=== PATIENT | female | born 1930 | race Caucasian/White ===

== ENCOUNTER 2017-04-10 08:37 | Outpatient (CLI) | payer MEDICARE, BC ==
--- NOTE | 2017-04-10 11:57 | CT Report ---
EXAM: CT ABDOMEN AND PELVIS (CT KUB) EXAM DATE: 04/10/2017 09:41 AM. CLINICAL HISTORY: ABD PAIN, L SIDE. COMPARISONS: None. TECHNIQUE: Routine axial helical CT imaging was performed through the abdomen and pelvis without IV c ontrast. Reconstructions: Coronal and sagittal. In accordance with CT protocol optimization, one or more of the following dose reduction techniques w ere utilized for this exam: automated exposure control, adjustment of mA and/or KV based on patient s ize, or use of iterative reconstructive technique. FINDINGS: Lung Bases: Unremarkable. Right Kidney/Ureter: Nonobstructing 2 mm stone in the inferior pole the right kidney. No hydronephros is or hydroureter. Left Kidney/Ureter: No stones, hydronephrosis, or hydroureter. No perinephric fat stranding. There is a 2.6 cm simple appearing cyst in the inferior pole of left kidney. Other Solid Organs: Noncontrast images of the solid organs are grossly unremarkable. Gallbladder/Bile Ducts: Unremarkable. Peritoneal Cavity: Mild diverticulitis of the distal ascending colon with no evidence of rupture. No free air or fluid in the abdomen or pelvis. No bowel obstruction. Pelvic Organs: No bladder stones or wall thickening. Noncontrast images of the visualized pelvic orga ns are unremarkable. Vasculature: Unremarkable. Other: None. IMPRESSION: 1. Early diverticulitis of the distal aspect of the descending colon with no evidence of rupture. No free air-fluid in the abdomen or pelvis. No abscess. 2. There is a 2 mm nonobstructing stone in the inferior pole the right kidney. Otherwise, no hydronep hrosis or obstructing renal stones. [facility] Referring Provider Line: [phone] SITE ID: [id number]
== END 2017-04-10 08:38 | disposition home or self-care (01) ==
LOC: DI 08:37
PROVIDERS: ATTEND Nurse Practitioner Family
DX: K57.32 Diverticulitis of large intestine without perforation or abscess without bleeding (principal); N20.0 Calculus of kidney
CPT/HCPCS: 74176

== ENCOUNTER 2017-11-02 21:00 | Outpatient (CLI) | payer MEDICARE, BC | END 2017-11-02 21:01 | disposition short-term general hospital (02) | LOC: EMS 21:00 | PROVIDERS: ATTEND Surgery | DX: R00.2 Palpitations (principal); R42 Dizziness and giddiness; R53.83 Other fatigue | CPT/HCPCS: A0425; A0427 ==

== ENCOUNTER 2018-08-01 19:17 | Outpatient (CLI) | payer MEDICARE, BC | END 2018-08-01 19:18 | disposition short-term general hospital (02) | LOC: EMS 19:17 | PROVIDERS: ATTEND Surgery | DX: R42 Dizziness and giddiness (principal); R11.0 Nausea | CPT/HCPCS: A0425; A0427 ==

== ENCOUNTER 2018-12-18 03:33 | Outpatient (CLI) | payer MEDICARE, BC | END 2018-12-18 03:34 | disposition critical access hospital (66) | LOC: EMS 03:33 | PROVIDERS: ATTEND Surgery | DX: M25.552 Pain in left hip (principal); W01.0XXA Fall on same level from slipping, tripping and stumbling without subsequent striking against object, initial encounter; Y93.01 Activity, walking, marching and hiking; Y92.091 Bathroom in other non-institutional residence as the place of occurrence of the external cause | CPT/HCPCS: A0425; A0429 ==

== ENCOUNTER 2018-12-18 03:56 | Inpatient (IN) | payer MEDICARE, BC ==
--- NOTE | 2018-12-18 04:11 | ED Physician Documentation ---
PD HPI Fall - Stated complaint Stated Complaint: GLF, L HIP PAIN - Chief complaint Chief Complaint: Ext Problem - Additional information Additional information: 88-year-old female who was brought to the emergency department for evaluation of left hip pain after a fall which occurred today. No reports of head, neck or torso or upper extremity trauma. The patient has an obvious deformity to the left leg. Symptoms are described as severe. No other associated symptoms. No relieving factors. Review of Systems Constitutional: denies: Fever Eyes: denies: Discharge Ears: denies: Ear pain Nose: denies: Rhinorrhea / runny nose, Congestion Throat: denies: Sore throat Cardiac: denies: Chest pain / pressure Respiratory: denies: Dyspnea GI: denies: Abdominal Pain : denies: Dysuria Skin: denies: Rash Musculoskeletal: reports: Extremity pain, Joint swelling. 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 - Allergies Allergies/Adverse Reactions: Allergies Allergy/AdvReac Type Severity Reaction Status Date / Time erythromycin base Allergy Unknown Verified 12/18/18 04:55 - Social History Does the pt smoke?: No Smoking Status: Never smoker Does the pt drink ETOH?: No Does the pt have substance abuse?: No - Immunizations Immunizations are current?: No Immunizations: TDAP >10years/unknown - POLST Patient has POLST: No PD ED PE NORMAL - General General: Alert and oriented X 3 - HEENT HEENT: Atraumatic, Moist mucous membranes - Neck Neck: No bony TTP - Cardiac Cardiac: No: RRR (Irregular rhythm) - Respiratory Respiratory: No respiratory distress, Clear bilaterally - Abdomen Abdomen: Soft, Non tender - Derm Derm: Normal color - Extremities Extremities: No: No deformity, No tenderness to palpate, Normal ROM s pain (Obvious deformity to the left hip with tenderness and decreased range of motion. No tenderness of the knee, ankle or foot) - Neuro Neuro: Alert and oriented X 3, Normal speech - Psych Psych: Normal affect PD ED PE EXPANDED - General General: In Pain, In distress Results - Vitals Vitals: Vital Signs - 24 hr 12/18/18 03:59 Temperature 35.8 C L Heart Rate 85 Respiratory 16 Rate Blood Pressure 199/125 H O2 Saturation 97 Oxygen O2 Source Room air - EKG (time done) 0447 Rate: Rate (enter#) Rhythm: Atrial fibrillation Intervals: QRS normal Ischemia: Non specific changes - Labs Labs: Laboratory Tests 12/18/18 12/18/18 12/18/18 04:34 04:34 04:34 WBC 7.6 RBC 4.89 Hgb 14.7 Hct 43.5 MCV 88.9 MCH 30.0 MCHC 33.8 RDW 13.7 Plt Count 182 MPV 8.8 Neut # (Auto) 4.9 Lymph # (Auto) 2.0 [place] # (Auto) 0.5 Eos # (Auto) 0.1 Baso # (Auto) 0.1 Absolute Nucleated RBC 0.01 Nucleated RBC % 0.1 PT 12.6 INR 1.1 Sodium 133 L Potassium 3.5 Chloride 97 L Carbon Dioxide 28 Anion Gap 8.0 BUN 18 Creatinine 0.7 Estimated GFR (MDRD) 79 L Glucose 118 H Calcium 9.1 Total Bilirubin 0.8 AST 19 ALT 15 Alkaline Phosphatase 72 Total Creatine Kinase 31 Troponin I Total Protein 6.9 Albumin 3.8 Globulin 3.1 Albumin/Globulin Ratio 1.2 Lipase 32 12/18/18 04:34 WBC RBC Hgb Hct MCV MCH MCHC RDW Plt Count MPV Neut # (Auto) Lymph # (Auto) [place] # (Auto) Eos # (Auto) Baso # (Auto) Absolute Nucleated RBC Nucleated RBC % PT INR Sodium Potassium Chloride Carbon Dioxide Anion Gap BUN Creatinine Estimated GFR (MDRD) Glucose Calcium Total Bilirubin AST ALT Alkaline Phosphatase Total Creatine Kinase Troponin I < 0.04 Total Protein Albumin Globulin Albumin/Globulin Ratio Lipase - Rads (name of study) XR hip Radiology: Final report received, See rad report PD MEDICAL DECISION MAKING - ED course ED course: The case discussed with the orthopedic surgeon Dr. Gautam who will evaluate the patient for definitive surgical management The case was discussed with the hospitalist who accepts the patient onto his service The findings and plan were discussed with the patient who understands and agrees Departure - Departure Disposition: [facility] DC/Xfer Clinical Impression: Hip fracture, left Qualifiers: Encounter type: initial encounter Fracture type: closed Qualified Code(s): S72. 002A - Fracture of unspecified part of neck of left femur, initial encounter for closed fracture Fall Qualifiers: Encounter type: initial encounter Qualified Code(s): W19.XXXA - Unspecified fall, initial encounter Condition: Stable
[2018-12-18] MEDS ORDERED: MORPHINE 2 MG/ML CARPUJECT IVP STA (04:36)
[2018-12-18 04:43] LABS: BASOPHILS # (AUTO) 0.1 10^3/uL (0.0-0.1); BASOPHILS % (AUTO) 0.9 %; EOSINOPHILS # (AUTO) 0.1 10^3/uL (0.0-0.7); HGB - HEMOGLOBIN 14.7 g/dL (12.0-16.0); LYMPHOCYTES % (AUTO) 26.3 %; MEAN CORPUSCULAR HGB CONC 33.8 g/dL (32.0-36.0); MEAN CORPUSCULAR VOLUME 88.9 fL (81.0-99.0); MEAN PLATELET VOLUME 8.8 fL (7.9-10.8); MONOCYTES # (AUTO) 0.5 10^3/uL (0.0-1.0); NEUTROPHILS # (AUTO) 4.9 10^3/uL (1.5-6.6); NEUTROPHILS % (AUTO) 64.8 %; PLT - PLATELET COUNT 182 10^3/uL (130-450); RED BLOOD COUNT 4.89 10^6/uL (4.20-5.40); RED CELL DISTRIBUTION WIDTH 13.7 % (12.0-15.0); WHITE BLOOD COUNT 7.6 x10^3/uL (4.8-10.8)
--- NOTE | 2018-12-18 04:43 | XRAY Report ---
Reason: chest pain Procedure Date: 12/18/2018 Accession Number: [id number] / [id number] Procedure: XR - Chest 1 View X-Ray CPT Code: 49299 FULL RESULT: EXAM: CHEST RADIOGRAPHY EXAM DATE: 12/18/2018 04:19 AM. CLINICAL HISTORY: Chest pain. COMPARISON: XR CHEST PA AND LAT 11/24/2011 2:02 PM. TECHNIQUE: 1 view. FINDINGS: Lungs/Pleura: No focal opacities evident. No pleural effusion. No pneumothorax. There is a calcified granuloma in the right midlung. Mediastinum: The heart is enlarged and stable compared to the prior study. The central pulmonary arteries are prominent and quickly taper. Findings may be related to pulmonary arterial hypertension. Other: None. IMPRESSION: 1. Stable appearance of the chest. No acute infiltrates. 2. Enlarged heart. [facility]
--- NOTE | 2018-12-18 04:45 | XRAY Report ---
Reason: pain, Procedure Date: 12/18/2018 Accession Number: [id number] / [id number] Procedure: XR - Hip w/Pelvis 2-3V LT CPT Code: FULL RESULT: EXAM: FLUOROSCOPIC GUIDANCE EXAM DATE: 12/18/2018 04:19 AM. CLINICAL HISTORY: Pain. COMPARISON: XR HIP UNILAT MIN 2 VIEW 11/03/2010 10:54 AM. FINDINGS: There is an angulated intertrochanteric fracture of the left hip. There are degenerative changes of both hips with joint space narrowing and marginal osteophytes. IMPRESSION: 1. Angulated intertrochanteric fracture of the left hip. 2. Degenerative changes of both hips. [facility]
[2018-12-18 04:49] LABS: INR 1.1 (0.8-1.2); PT - PROTHROMBIN TIME 12.6 secs (9.9-12.6)
[2018-12-18 04:55] LABS: ALBUMIN 3.8 g/dL (3.2-5.5); ALBUMIN/GLOBULIN RATIO 1.2 (1.0-2.2); BILIRUBIN,TOTAL 0.8 mg/dL (0.2-1.0); CALCIUM 9.1 mg/dL (8.5-10.3); CREATININE 0.7 mg/dL (0.4-1.0); TOTAL PROTEIN 6.9 g/dL (6.7-8.2)
[2018-12-18] MEDS ORDERED: HYDROcod/ACETAM 5/325 MG TABLET PO PRN (05:59)
[2018-12-18] MEDS ORDERED: ACETAMINOPHEN 325 MG TABLET PO PRN (05:59)
[2018-12-18] MEDS ORDERED: SODIUM CHLORIDE FLUSH 0.9% 10 ML SYRINGE IVP PRN ×2 (05:59→16:15)
[2018-12-18] MEDS ORDERED: SODIUM CHLORIDE 0.9% 1,000 ML IV SCH (06:00)
--- NOTE | 2018-12-18 06:23 | HISTORY & PHYSICAL EXAMINATION ---
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 She sustained a mechanical fall while going to the bathroom. She reports that the floor was wet and she slipped. She usually gets around using a walker. She denies chest pain, BENJI, abd pain, fever or chills. She rates her left hip pain currently as 4/10. However it gets significantly worse when she tries to move. She also has very dry oral mucosa. Work up in the ED revealed she has a left hip fracture. She is being admitted for further treatment. 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 brother: from an unspecified cardiac problem Living arrangement: [facility] - Substance History Use: Uses substance without health or social issues: NONE - POLST Patient has POLST: No POLST Status: DNR Meds/Allgy - Allergies Allergies/Adverse Reactions: Allergies Allergy/AdvReac Type Severity Reaction Status Date / Time erythromycin base Allergy Unknown Verified 12/18/18 04:55 Review of Systems - Constitutional Constitutional: denies: Fatigue, Fever, Chills, Malaise, Diaphoresis, Night sweats - Eyes Eyes: reports: Vision loss (left worse than right). denies: Pain - Ears, Nose & Throat Ears, Nose & Throat: denies: Ear pain, Hearing loss, Vertigo - Cardiovascular Cariovascular: reports: Irregular heart rate. denies: Palpitations, Chest pain, Edema, Lightheadedness, Syncope, Exertional dyspnea, Decr. exercise tolerance, Orthopnea - Respiratory Respiratory: denies: Cough, Sputum production, Wheezing, SOB at rest, SOB with exertion - Gastrointestinal Gastrointestinal: denies: Abdominal pain, Diarrhea, Nausea, Vomiting - Genitourinary Genitourinary: denies: Dysuria, Frequency, Urgency, Hematuria - Musculoskeletal Musculoskeletal: reports: Joint pain (left hip) - Integumentary Integumentary: denies: Rash, Pruritis, Dryness - Neurological Neurological: reports: Focal weakness (left-sided residual weakness) - Psychiatric Psychiatric: denies: Depression, Anxiety, Suicidal - Endocrine Endocrine: denies: Polyuria, Polydypsia - Hematologic/Lymphatic Hematologic/Lymphatic: denies: Anemia, Bruising, Petechiae Prior Level of Functionality: Patient has very poor vision in both eyes. Left worse than right She lives at [place]. She ambulates using a walker Exam - Vital Signs Vital Signs: Vital Signs x48h Temp Pulse Resp BP Pulse Ox 12/18/18 03:59 35.8 C L 85 16 199/125 H 97 - Physical Exam General Appearance: positive: Alert, Moderate distress. negative: Lethargic Eyes Bilateral: positive: Normal inspection. negative: Conjunctivae nml, No scleral icterus ENT: positive: ENT inspection nml, Dry mucous membranes. negative: Pharynx nml Neck: positive: Nml inspection, No JVD, Trachea midline Respiratory: positive: Chest non-tender, No respiratory distress, Breath sounds nml. negative: Wheezes, Rales, Rhonchi Cardiovascular: positive: Irregularly irregular Abdomen: positive: Non-tender, Nml bowel sounds, No distention. negative: Guarding, Rebound Back: positive: Nml inspection Extremities: positive: Pedal edema (left more than right). negative: Full ROM Neurologic/Psychiatric: positive: Oriented x3 Conclusion/Plan - Problem List (1) Hip fracture, left Conclusion/Plan: Patient NPO. IV hydration Pain management with norco and tylenol Dr Gautam (orthopedic) was contacted by the ED and will see the patient EKG pending Revised cardiac risk index Risk factor: Multiple CVA's Patient has a revised cardiac risk index of 1.0-1.5 % This is the risk of a cardiac event during this non-cardiac surgery However patient has a history of a reaction to an unspecified anesthetic She experienced sudden drop in her blood pressure in the OR upon administration. Thus she would need clearance from an anesthesiology point of view Qualifiers: Encounter type: initial encounter Fracture type: closed Qualified Code(s): S72.002A - Fracture of unspecified part of neck of left femur, initial encounter for closed fracture (2) Hypertension Conclusion/Plan: On metoprolol. Will continue (3) Atrial fibrillation Conclusion/Plan: Rate controlled. On metoprolol. Will continue On baby aspirin only. Will continue Qualifiers: Atrial fibrillation type: chronic Qualified Code(s): I48.2 - Chronic atrial fibrillation (4) Dehydration, mild Conclusion/Plan: Gentle hydration with normal saline at 100ml/hr - Lab Results Fish Bones: 12/18/18 04:34 12/18/18 04:34 Core Measures - Anticipated LOS I expect patient to be DC'd or transferred within 96 hours.: Yes - DVT/VTE - Prophylaxis VTE/DVT Device ordered at admit?: Yes VTE/DVT Prophylaxis med ordered at admit?: No Not Ordered - Medical Reason: Contraindicated (surgery to be done shortly) - AMI - Statin at Admit Aspirin Prescribed on Admit: Yes
[2018-12-18] MEDS: POLYETHYLENE GLYCOL 3350 17 GM PACKET PO SCH (08:58)
[2018-12-18] MEDS ORDERED: SODIUM CHLORIDE FLUSH 0.9% 10 ML SYRINGE IVP SCH (09:00)
[2018-12-18] MEDS: METOPROLOL SUCCINATE 50 MG TABLET PO SCH ×2 (10:14→18:39)
--- NOTE | 2018-12-18 12:18 | PROVIDER PROGRESS NOTE ---
Subjective - Prog Note Date Prog Note Date: 12/18/18 Prog Note Time: 12:15 - Subjective Pt reports feeling: No change (Patient DIVINA aGLF at [facility] on her way to the bathroom last PM, injuring her left hip. Noted immediate pain; unable to stand. Taken to ED where XR showed her left hip fracture. No LOC or other new injuries. Hx of CVA in the past- last one in Oct 2018. 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) Objective - Vital Signs/Intake & Output Vital Signs: Vital Signs x48h Temp Pulse Resp BP Pulse Ox 12/18/18 10:54 36.2 C L 85 18 137/89 H 94 12/18/18 06:58 36.3 C L 90 18 146/94 H 93 - Lab Results Fish Bones: 12/18/18 04:34 12/18/18 04:34 Other Labs: Lab Results x24hrs 12/18/18 12/18/18 12/18/18 Range/Units 04:34 04:34 04:34 WBC (4.8-10.8) x10^3/uL RBC (4.20-5.40) 10^6/uL Hgb (12.0-16.0) g/dL Hct (37.0-47.0) % MCV (81.0-99.0) fL MCH (27.0-31.0) pg MCHC (32.0-36.0) g/dL RDW (12.0-15.0) % Plt Count (130-450) 10^3/uL MPV (7.9-10.8) fL Neut # (Auto) (1.5-6.6) 10^3/uL Lymph # (Auto) (1.5-3.5) 10^3/uL [place] # (Auto) (0.0-1.0) 10^3/uL Eos # (Auto) (0.0-0.7) 10^3/uL Baso # (Auto) (0.0-0.1) 10^3/uL Absolute Nucleated RBC x10^3/uL Nucleated RBC % /100WBC PT 12.6 (9.9-12.6) secs INR 1.1 (0.8-1.2) Sodium 133 L (135-145) mmol/L Potassium 3.5 (3.5-5.0) mmol/L Chloride 97 L (101-111) mmol/L Carbon Dioxide 28 (21-32) mmol/L Anion Gap 8.0 (6-13) BUN 18 (6-20) mg/dL Creatinine 0.7 (0.4-1.0) mg/dL Estimated GFR (MDRD) 79 L (>89) Glucose 118 H (70-100) mg/dL Calcium 9.1 (8.5-10.3) mg/dL Total Bilirubin 0.8 (0.2-1.0) mg/dL AST 19 (10-42) IU/L ALT 15 (10-60) IU/L Alkaline Phosphatase 72 (42-121) IU/L Total Creatine Kinase 31 (22-269) IU/L Troponin I < 0.04 (<0.49) ng/mL Total Protein 6.9 (6.7-8.2) g/dL Albumin 3.8 (3.2-5.5) g/dL Globulin 3.1 (2.1-4.2) g/dL Albumin/Globulin Ratio 1.2 (1.0-2.2) Lipase 32 (22-51) U/L 12/18/18 Range/Units 04:34 WBC 7.6 (4.8-10.8) x10^3/uL RBC 4.89 (4.20-5.40) 10^6/uL Hgb 14.7 (12.0-16.0) g/dL Hct 43.5 (37.0-47.0) % MCV 88.9 (81.0-99.0) fL MCH 30.0 (27.0-31.0) pg MCHC 33.8 (32.0-36.0) g/dL RDW 13.7 (12.0-15.0) % Plt Count 182 (130-450) 10^3/uL MPV 8.8 (7.9-10.8) fL Neut # (Auto) 4.9 (1.5-6.6) 10^3/uL Lymph # (Auto) 2.0 (1.5-3.5) 10^3/uL [place] # (Auto) 0.5 (0.0-1.0) 10^3/uL Eos # (Auto) 0.1 (0.0-0.7) 10^3/uL Baso # (Auto) 0.1 (0.0-0.1) 10^3/uL Absolute Nucleated RBC 0.01 x10^3/uL Nucleated RBC % 0.1 /100WBC PT (9.9-12.6) secs INR (0.8-1.2) Sodium (135-145) mmol/L Potassium (3.5-5.0) mmol/L Chloride (101-111) mmol/L Carbon Dioxide (21-32) mmol/L Anion Gap (6-13) BUN (6-20) mg/dL Creatinine (0.4-1.0) mg/dL Estimated GFR (MDRD) (>89) Glucose (70-100) mg/dL Calcium (8.5-10.3) mg/dL Total Bilirubin (0.2-1.0) mg/dL AST (10-42) IU/L ALT (10-60) IU/L Alkaline Phosphatase (42-121) IU/L Total Creatine Kinase (22-269) IU/L Troponin I (<0.49) ng/mL Total Protein (6.7-8.2) g/dL Albumin (3.2-5.5) g/dL Globulin (2.1-4.2) g/dL Albumin/Globulin Ratio (1.0-2.2) Lipase (22-51) U/L - Diagnostic Imaging Diagnostic Imaging Comments: XR showed left IT hip fracture with some displacement. 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 Left sided weakness due to CVA 4. Atrial fibrillation PLAN: To OR for long interTan nailing of left hip fracture. Options given. Possible complications discussed, including anesthesia risk, infection, malunion, nerve damage, repeat CVA, DVT, etc. Questions answered. Leg marked. Consent signed. Qualifiers: Encounter type: initial encounter Fracture type: closed Qualified Code(s): S72.002A - Fracture of unspecified part of neck of left femur, initial encounter for closed fracture
--- NOTE | 2018-12-18 13:09 | ANESTHESIA ---
Pre-Anesthesia VS, & Labs - Diagnosis left hip fracture - Procedure left hip intertan nailing Vital Signs: Temp Pulse Resp BP Pulse Ox 36.2 C L 85 18 137/89 H 94 12/18/18 10:54 12/18/18 10:54 12/18/18 10:54 12/18/18 10:54 12/18/18 10:54 Height 5 ft 3 in Weight (kg) 57.5 kg Body Mass Index 22.4 - NPO >8 hours - Is Patient ?: Not Applicable - Lab Results Current Lab Results: Laboratory Tests 12/18/18 04:34: Troponin I < 0.04 12/18/18 04:34: Sodium 133 L, Potassium 3.5, Chloride 97 L, Carbon Dioxide 28, Anion Gap 8.0, BUN 18, Creatinine 0.7, Estimated GFR (MDRD) 79 L, Glucose 118 H, Calcium 9.1, Total Bilirubin 0.8, AST 19, ALT 15, Alkaline Phosphatase 72, Total Creatine Kinase 31, Total Protein 6.9, Albumin 3.8, Globulin 3.1, Albumin/Globulin Ratio 1.2, Lipase 32 12/18/18 04:34: PT 12.6, INR 1.1 12/18/18 04:34: WBC 7.6, RBC 4.89, Hgb 14.7, Hct 43.5, MCV 88.9, MCH 30.0, MCHC 33.8, RDW 13.7, Plt Count 182, MPV 8.8, Neut # (Auto) 4.9, Lymph # (Auto) 2.0, [place] # (Auto) 0.5, Eos # (Auto) 0.1, Baso # (Auto) 0.1, Absolute Nucleated RBC 0.01, Nucleated RBC % 0.1 Fish Bones: 12/18/18 04:34 12/18/18 04:34 Home Medications and Allergies Home Medications: Ambulatory Orders Aspirin [Aspirin EC] 81 mg PO DAILY 12/18/18 Metoprolol Tartrate [Lopressor] 75 mg PO BID 12/18/18 Active Medications Acetaminophen (Tylenol) 650 mg PO Q4HR PRN PRN Reason: Pain 1 to 4 Hydrocodone Bitart/Acetaminophen ([place] 5/325) 1 tab PO Q4HR PRN PRN Reason: Pain 5 to 7 Last Admin: 12/18/18 09:12 Dose: 1 tab Sodium Chloride (Normal Saline 0.9%) 1,000 mls @ 100 mls/hr IV .Q10H [facility] Last Admin: 12/18/18 08:57 Dose: 100 mls/hr Cefazolin Sodium/Dextrose (Ancef 2 Gm/50 Ml) 2 gm in 50 mls @ 100 mls/hr IV ONCE [facility] Stop: 12/18/18 16:00 Metoprolol Succinate (Toprol Xl) 50 mg PO BIDWM [facility] Last Admin: 12/18/18 10:14 Dose: 50 mg Polyethylene Glycol (Miralax) 17 gm PO DAILY [facility] Last Admin: 12/18/18 08:58 Dose: Not Given Sodium Chloride (Normal Saline Flush 0.9%) 10 ml IVP PRN PRN PRN Reason: NEEDED PER PROVIDER ORDERS Sodium Chloride (Normal Saline Flush 0.9%) 10 ml IVP 0100,0900,1700 [facility] Last Admin: 12/18/18 08:58 Dose: 10 ml Aspirin [Aspirin EC] 81 mg PO DAILY 12/18/18 Metoprolol Tartrate [Lopressor] 75 mg PO BID 12/18/18 Allergies/Adverse Reactions: Allergies Allergy/AdvReac Type Severity Reaction Status Date / Time erythromycin base Allergy Unknown Verified 12/18/18 04:55 Anes History & Medical History - Anesthetic History Anesthesia Complications: reports: No previous complications - Medical History Cardiovascular: reports: Hypertension, Atrial fibrillation Pulmonary: reports: None Gastrointestinal: reports: None Urinary: reports: Incontinence Neuro: reports: TIA Musculoskeletal: reports: Osteoarthritis Skin: reports: Rosacea Smoking Status: Never smoker - Surgical History General: Hiatal hernia repair Gynecologic: Hysterectomy Exam General: Alert Dental: WNL Mouth Opening: Greater than 4 Fingerbreadths Mallampati classification: III Thyromental Distance: greater than 6 cm Respiratory: Lungs clear Cardiovascular: Regular rate Neurological: Other (patient is blind, left weakness From CVA) Mental/Cognitive Status: Alert/Oriented X3 Plan Anesthesia Type: Spinal Consent for Procedure(s) Verified and Reviewed: Yes Code Status: Do Not Attempt Resuscitation ASA classification: 3-Severe systemic disease Is this case an emergency?: Yes
[2018-12-18] MEDS ORDERED: BUPIVACAINE 0.25%-EPI 1:200000 PF 30 ML VIAL ONE (13:33)
--- NOTE | 2018-12-18 13:51 | CONSULTATION NOTE ---
DATE OF SERVICE: 12/18/2018 Physician: Josue Gautam MD REFERRING PHYSICIAN: Darion Walter MD of the emergency room department. CHIEF COMPLAINT: "My left hip hurts." HISTORY OF PRESENT ILLNESS: Patient is an 88-year-old female resident at [place], who apparently fell while going to the bathroom last evening, landing on her left side. She noted immediate pain in her left hip and was unable to stand or weight bear. She had a recent stroke, which has resulted in a residual left-sided weakness as well as blindness. She has been able to walk with a walker at her [place] [facility]. The patient denies any other injuries. There was no loss of conscious noted. PHYSICAL EXAMINATION: The patient's left hip is shortened and externally rotated. It is tender on palpation. Painful hip range of motion noted as well. The patient is able to wiggle her toes on command. Sensation appeared to be intact as well. Good capillary filling of the digits noted. IMAGES: X-rays that were taken shows an angulated, minimally comminuted intratrochanteric left hip fracture. She has marked osteoporosis of her left femur, likely due to disuse from her recent stroke. ASSESSMENT 1. Closed displaced and angulated left intertrochanteric hip fracture. 2. 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 She has, however, been an ambulator in the [place] [facility] with a walker. 3. Status post cerebrovascular accident, which has resulted in blindness and left-sided weakness. 4. History of atrial fibrillation - currently on baby aspirin only for any anticoagulation. 5. History of hypertension. 6. History of total knee arthroplasty. PLAN: Discussed with patient her treatment options. Also discussed possible complications if we proceeded with surgery including anesthesia risks, infection, blood loss, nerve damage, malunion, nonunion, new stroke, or deep venous thromboses. She appears to understand the risks. Her questions were answered. She wishes to proceed with surgery. Consent signed. Leg marked. TD: 12/18/2018 12:37 RONY
[2018-12-18] MEDS ORDERED: fentaNYL 100 MCG/2 ML VIAL IVP ONE (14:00)
[2018-12-18] MEDS ORDERED: ROCURONIUM 50 MG/5 ML VIAL IVP ONE (14:00)
[2018-12-18] MEDS ORDERED: ePHEDrine 50 MG/ML VIAL IVP ONE (14:00)
[2018-12-18] MEDS ORDERED: ONDANSETRON 4 MG/2 ML VIAL IVP ONE (14:00)
[2018-12-18] MEDS ORDERED: LIDOCAINE-MPF 2% 5 ML VIAL IM ONE (14:00)
[2018-12-18] MEDS ORDERED: KETAMINE 500 MG/10 ML VIAL IVP ONE (14:00)
[2018-12-18] MEDS ORDERED: PHENYLEPHRINE 50 MG/5 ML VIAL IV ONE (14:00)
[2018-12-18] MEDS ORDERED: ceFAZolin 2 GM/50 ML 2 GM/50 ML BAG IV SCH (14:00)
[2018-12-18] MEDS ORDERED: PROPOFOL 200 MG/20 ML VIAL IVP ONE (14:00)
[2018-12-18] MEDS ORDERED: MIDAZOLAM 2 MG/2 ML VIAL IVP ONE (14:00)
[2018-12-18] MEDS ORDERED: DEXAMETHASONE 4 MG/ML VIAL IVP ONE (14:00)
[2018-12-18] MEDS ORDERED: ceFAZolin 2 GM/50 ML 2 GM/50 ML BAG IV ONE (14:00)
[2018-12-18] MEDS ORDERED: BUPIVACAINE 0.25% PF 30 ML VIAL SUBQ ONE ×2 (14:59→15:52)
[2018-12-18] MEDS ORDERED: LACTATED RINGERS 1,000 ML IV ONE ×2 (15:00→15:05)
[2018-12-18] MEDS ORDERED: ONDANSETRON 4 MG/2 ML VIAL IVP PRN (16:15)
[2018-12-18] MEDS ORDERED: PROCHLORPERAZINE 10 MG/2 ML VIAL IVP PRN (16:15)
[2018-12-18] MEDS ORDERED: SENNA 8.6 MG TABLET PO PRN (16:15)
[2018-12-18] MEDS ORDERED: oxyCODONE 5 MG TABLET PO PRN (16:15)
[2018-12-18] MEDS ORDERED: DOCUSATE SODIUM 100 MG CAPSULE PO PRN (16:15)
[2018-12-18] MEDS ORDERED: MORPHINE 2 MG/ML CARPUJECT IVP PRN (16:15)
--- NOTE | 2018-12-18 16:15 | OPERATIVE REPORT ---
Operative Report - General Admit Date: 12/18/18 Procedure Date: 12/18/18 Planned Procedure: Long interTan nailing of left hip fracture Pre-Op Diagnosis: Left intertrochancteric hip fracture; osteoporosis Procedure Performed: Closed reduction and long interTan nailing of left hip fracture Post Op Diagnosis: Same - Procedure Note Primary Surgeon: Dennys Gautam MD Anesthesia Provider: Gabe Vega CRNA Anesthesia Technique: General ET tube IV Fluids (mL): 900 Estimated Blood Loss (mL): 150 Complications: None
[2018-12-18 17:47] LABS: BILIRUBIN,URINE NEGATIVE (NEGATIVE); GLUCOSE, URINE (UA) NEGATIVE (NEGATIVE); KETONES,URINE (UA) NEGATIVE (NEGATIVE); LEUKOCYTE ESTERASE, URINE SMALL (NEGATIVE); NITRITE,URINE POSITIVE (NEGATIVE); OCCULT BLOOD,URINE MODERATE (NEGATIVE); PROTEIN,URINE NEGATIVE (NEGATIVE); UROBILINOGEN,URINE 0.2 (NORMAL) E.U./dL (NORMAL)
[2018-12-18 17:54] LABS: CLARITY,URINE HAZY (CLEAR)
[2018-12-18 18:03] LABS: BACTERIA,URINE Many /HPF (None Seen); RBC,URINE TNTC /HPF (0-5); SQUAMOUS EPITHELIAL CELL,UR NONE SEEN (<= Few)
[2018-12-18] MEDS: SODIUM CHLORIDE 0.9% 1,000 ML IV SCH (18:21)
[2018-12-18] MEDS: SODIUM CHLORIDE FLUSH 0.9% 10 ML SYRINGE IVP SCH (18:21)
--- NOTE | 2018-12-18 18:38 | OPERATIVE REPORT ---
DATE OF SERVICE: 12/18/2018 Physician: Josue Gautam MD PREOPERATIVE DIAGNOSIS: Angulated left intertrochanteric hip fracture. POSTOPERATIVE DIAGNOSIS: Angulated left intertrochanteric hip fracture. PROCEDURE PERFORMED: Closed reduction and long Intertan nailing of left hip fracture. SURGEON: Josue Gautam MD NURSERYMAN ASSISTANT: ANESTHESIA TYPE/PROVIDER: General. DESCRIPTION OF PROCEDURE: The patient was taken to the operating room on the afternoon of 12/18/2018 , where she was placed under general anesthetic in a supine position, after the attempt for spinal an esthetic was unsuccessful. She was then positioned supine onto the fracture table. The right unfrac tured leg was then flexed and widely abducted and held in the well leg baldwin. We then placed the fr actured left lower extremity in axial traction with the leg internally rotated about 30 degrees. Int raoperative x-rays of the hip in AP and lateral projection showed good reduction of our fracture in b oth projections. We then prepped and draped the lateral aspect of the hip down to the lateral knee i n the usual fashion for our procedure. Making oblique skin incision just proximal to the tip of the greater trochanter, we incised the skin and fascia neptali. We then bluntly dissected down to the tip of the greater trochanter. This was wher e we placed the threaded-tip guidewire from our set. Fluoroscopic views confirmed the location of ou r guide pin at the tip of the greater trochanter. We then advanced this pin under power down to the proximal femur, down to the level of the lesser trochanter. Fluoroscopic view in AP and lateral proj ection, showed a good position of our guide pin and proper depth. We then reamed over this guide pin a 17 mm channel reamer down to the tip of the greater trochanter. We then removed the guide pin and the reamer. We next followed with the ball-tip down into the reamed proximal femur and advanced thi s down the femoral canal, down to the level of the distal femoral epiphyseal scar. The position of o ur guide pin intraosseously was confirmed in AP and lateral projections of fluoroscopic views of the femur. Direct measuring guide was then used, and we would determine a 38 cm length nail would be uti lized. We then sequentially reamed the femoral shaft with the flexible reamer, starting with a 9 mm end cutting reamer. We then advanced in 1 mm increments up to 13 mm. We then advanced 0.5 mm increm ents until we finished with the 14.5 mm reamer. At this point, we removed the reamers and proceeded to insert the selected long Intertan nail: A 13 mm diameter x 38 cm length x 125 degree angle. This left Intertan nail, the proximal hole of the nail was found to be in alignment with the axis of the f emoral neck. This was felt satisfactory. We then made a skin incision over the lateral proximal thi gh, where we inserted the oval drill sleeve, which was inserted in the distal end of our insertion ou trigger. This was advanced to the lateral femoral cortex. The drill sleeve was then inserted into t his drill guide. We then advanced the threaded-tip guidewire under power through the proximal femur, the femoral neck and into the femoral head. Minimal adjustments were made until the guide pin was i n the central axis of the femoral neck and head in both AP and lateral projections. This was advance d within a couple millimeters of the subchondral bone of the femoral head. Satisfied with its locati on, a direct measuring guide was used and we decided an 11 x 100 mm subtrochanteric hip lag screw be utilized. Removing our pin guide, we then proceeded to use the cannulated reamer to prepare the prox imal femur up to within a few millimeters of the subchondral bone of the femoral head. Removing the reamer, we then placed the selected subtrochanteric hip lag screw up into the femoral neck and head u sing the inserted guide pin as our guide. Fluoroscopic views in AP and lateral projection showed goo d placement of our hip lag screw with the threaded portion within a few millimeters of the subchondra l bone in both AP and lateral projections. We then obtained some mild compression with our compressi on knob to impact the fracture. Satisfied with our reduction and our placement of our hardware, we t hen removed the insertion apparatus from the hip lag screw. We then used a hinge screwdriver to tigh ten the set bolt in the proximal end of our nail until it was snug and then backed it off 90 degrees. At this point, we then removed the insertion/outrigger apparatus that was used to insert the nail. We then redirected our attention down distally. We abducted the leg locking into place to allow bet ter positioning of our C-arm fluoroscopy in lateral projection. With minor adjustments of the C-arm and of the leg, we were able to obtain nearly perfect circles in the distal interlocking holes in our distal end of our nail. We then made a small skin incision overlying the oval distal hole in the na il. After clearing away the soft tissues, then placed the 4.0 mm drill overlying the oval hole in th e nail and proceeded to drill both the lateral and medial femoral cortex. Fluoroscopic views in AP a nd lateral projection showed that the drill was within the distal hole of our nail and was bicortical . Direct measuring guide was used and we determined the proper length of our screw. We then removed the drill and followed with the selected distal locking screw. Fluoroscopic views were then obtaine d showing that the distal locking screw was in the oval hole in the distal end of our nail and was bi cortical. Proximal views again showed the fracture to still be reduced adequately, and the hardware to be in satisfactory position. We then irrigated the wounds out thoroughly with saline. We closed the proximal wound with several interrupted stitches of 0 Vicryl to approximate the fascia neptali layer . We then followed with closure of the subcutaneous tissue using buried simple interrupted stitches of 2-0 Vicryl for both the proximal and middle incision. Finally, skin shelby were used to close th e skin wounds on all the incisions. We injected a total of 24 mL of 0.25% Marcaine with epinephrine to provide local anesthesia to the incisions. We then dressed the wounds and transferred the patient off of the fracture table and onto her bed. She was then taken to recovery room in satisfactory con dition. ESTIMATED BLOOD LOSS: About 150 mL REPLACEMENT: 900 mL of crystalloid. INTRAOPERATIVE COMPLICATIONS: None. PLAN: We will begin physical therapy on the first postoperative day. She may go weightbearing as to lerated on this lower extremity with her walker. TD: 12/18/2018 16:46
--- NOTE | 2018-12-18 19:29 | XRAY Report ---
Reason: LEFT HIP PINNING Procedure Date: 12/18/2018 Accession Number: [id number] / [id number] Procedure: [place] - OR C-Arm Procedure CPT Code: FULL RESULT: Findings IMPRESSION: Please refer to accession #[id number] for details.
--- NOTE | 2018-12-18 19:29 | XRAY Report ---
Reason: LEFT HIP PINNING Procedure Date: 12/18/2018 Accession Number: [id number] / [id number] Procedure: XR - Hip w/Pelvis 1V LT CPT Code: FULL RESULT: EXAM: PELVIS RADIOGRAPHY EXAM DATE: 12/18/2018 04:07 PM. CLINICAL HISTORY: LEFT HIP PINNING. COMPARISON: HIP W/PELVIS 2-3V LT 12/18/2018 4:19 AM. TECHNIQUE: Intraoperative fluoroscopic views. FINDINGS: Intraoperative fluoroscopy was provided for left hip open reduction with internal fixation. There is interval placement of a trochanteric fixation nail and intramedullary sawyer in the left femur. Near-anatomic alignment of the intertrochanteric fracture. Please refer to operative report for further details. Total fluoroscopy time: 49 seconds (0.21 mGy). IMPRESSION: Intraoperative fluoroscopy as above. RADIA
[2018-12-18] MEDS: ceFAZolin 2 GM/50 ML 2 GM/50 ML BAG IV SCH (21:50)
[2018-12-19] MEDS: SODIUM CHLORIDE FLUSH 0.9% 10 ML SYRINGE IVP SCH ×3 (01:54→16:51)
[2018-12-19 05:07] LABS: BASOPHILS % (AUTO) 0.2 %; LYMPHOCYTES # (AUTO) 0.8 10^3/uL (1.5-3.5); LYMPHOCYTES % (AUTO) 6.3 %; MEAN CORPUSCULAR HEMOGLOBIN 30.1 pg (27.0-31.0); MEAN CORPUSCULAR HGB CONC 32.8 g/dL (32.0-36.0); MEAN CORPUSCULAR VOLUME 91.9 fL (81.0-99.0); MEAN PLATELET VOLUME 8.8 fL (7.9-10.8); MONOCYTES # (AUTO) 0.9 10^3/uL (0.0-1.0); MONOCYTES % (AUTO) 7.1 %; NEUTROPHILS # (AUTO) 10.4 10^3/uL (1.5-6.6); NEUTROPHILS % (AUTO) 86.4 %; PLT - PLATELET COUNT 138 10^3/uL (130-450); RED BLOOD COUNT 3.98 10^6/uL (4.20-5.40); RED CELL DISTRIBUTION WIDTH 13.9 % (12.0-15.0); WHITE BLOOD COUNT 12.1 x10^3/uL (4.8-10.8)
[2018-12-19] MEDS: ceFAZolin 2 GM/50 ML 2 GM/50 ML BAG IV SCH (05:21)
[2018-12-19] MEDS: SODIUM CHLORIDE 0.9% 1,000 ML IV SCH ×2 (06:01→21:03)
--- NOTE | 2018-12-19 06:38 | PROVIDER PROGRESS NOTE ---
Subjective - Prog Note Date Prog Note Date: 12/19/18 Prog Note Time: 06:35 - Subjective Pt reports feeling: Improved Subjective: Karen has no complaints but admits to being frightened when moving since having surgery. She cannot see well, but wanted it to be darker in her room for a nap today. She denies chest pain, chest pressure, nausea, vomiting, diarrhea, a rash, dizziness, a loss of sensation in her LLE, or a new cough. She was not surprised to hear of her acute UTI, and understands the Hospitalist role. Current Medications - Current Medications Current Medications: Active Medications: Acetaminophen (Tylenol) 650 - 975 mg PO Q4HR PRN Docusate Sodium (Colace 100mg Capsule) 100 mg PO BID PRN Enoxaparin Sodium (Lovenox) 40 mg SUBQ DAILY JEAN-PIERRE Acetaminophen (Ofirmev) 100 mls @ 400 mls/hr IV Q6HR PRN Sodium Chloride (Normal Saline 0.9%) 1,000 mls @ 80 mls/hr IV .[id number] JEAN-PIERRE Metoprolol Succinate (Toprol Xl) 50 mg PO BIDWM JEAN-PIERRE Morphine Sulfate (Morphine (Carpuject)) 2 mg IVP Q2HR PRN Ondansetron HCl (Zofran Inj) 4 mg IVP Q6HR PRN Oxycodone HCl (Roxicodone) 5 mg PO Q4HR PRN Polyethylene Glycol (Miralax) 17 gm PO DAILY JEAN-PIERRE Prochlorperazine Edisylate (Compazine Inj) 10 mg IVP Q6HR PRN Senna (Senokot) 17.2 mg PO Q12H PRN TMP/sulfa BID PO Vitamin D3 daily PO Fosamax 10 mg daily PO x7 days HOME meds: Aspirin [Aspirin EC] 81 mg PO DAILY 12/18/18 Metoprolol Succinate 75 mg PO BID 12/18/18 Objective - Vital Signs/Intake & Output Reviewed Vital Signs: Yes Vital Signs: Vital Signs x48h Temp Pulse Resp BP Pulse Ox 12/19/18 04:07 36.2 C L 89 16 134/88 H 98 12/18/18 23:44 36.4 C L 84 18 110/72 100 Intake & Output: Intake & Output 12/16/18 12/17/18 12/18/18 12/19/18 23:59 23:59 23:59 23:59 Intake Total 755 1333.333 Output Total 230 125 Balance 525 1208.333 - Objective General Appearance: positive: No acute distress, Alert Eyes Bilateral: positive: PERRL Eyes: OU Conjunctivae pale ENT: positive: Pharynx nml, Dry mucous membranes Neck: positive: No JVD, Trachea midline Respiratory: positive: Chest non-tender, No respiratory distress, Other (diminished) Cardiovascular: positive: No gallop, Irregularly irregular, Tachycardia, Systolic murmur, Decreased pulse(s) Peripheral Pulses: 1+ Radial (R), 1+ Radial (L), 1+ Posterior tibialis (R), 1+ Posterior tibialis (L) Abdomen: positive: Non-tender, Nml bowel sounds Back: positive: Nml inspection Skin: positive: Color nml, No rash, Warm, Dry Extremities: positive: Pedal edema, Joint swelling (LLE with more edema, post op sites are CDI with ice packs) Neurologic/Psychiatric: positive: Oriented x3, CN's nml (2-12), Motor nml, Weakness, Facial droop (left), Slurred/abnml speech, Depressed mood/affect - Lab Results Fish Bones: 12/19/18 04:55 12/18/18 04:34 Other Labs: Lab Results x24hrs 12/19/18 12/18/18 12/18/18 Range/Units 04:55 16:25 13:39 WBC 12.1 H (4.8-10.8) x10^3/uL RBC 3.98 L (4.20-5.40) 10^6/uL Hgb 12.0 (12.0-16.0) g/dL Hct 36.6 L (37.0-47.0) % MCV 91.9 (81.0-99.0) fL MCH 30.1 (27.0-31.0) pg MCHC 32.8 (32.0-36.0) g/dL RDW 13.9 (12.0-15.0) % Plt Count 138 (130-450) 10^3/uL MPV 8.8 (7.9-10.8) fL Neut # (Auto) 10.4 H (1.5-6.6) 10^3/uL Lymph # (Auto) 0.8 L (1.5-3.5) 10^3/uL [place] # (Auto) 0.9 (0.0-1.0) 10^3/uL Eos # (Auto) 0.0 (0.0-0.7) 10^3/uL Baso # (Auto) 0.0 (0.0-0.1) 10^3/uL Absolute Nucleated RBC 0.00 x10^3/uL Nucleated RBC % 0.0 /100WBC Urine Color YELLOW Urine Clarity HAZY (CLEAR) Urine pH 6.0 (5.0-7.5) PH Ur Specific [place] 1.025 (1.002-1.030) Urine Protein NEGATIVE (NEGATIVE) mg/dL Urine Glucose (UA) NEGATIVE (NEGATIVE) mg/dL Urine Ketones NEGATIVE (NEGATIVE) mg/dL Urine Occult Blood MODERATE H (NEGATIVE) Urine Nitrite POSITIVE H (NEGATIVE) Urine Bilirubin NEGATIVE (NEGATIVE) Urine Urobilinogen 0.2 (NORMAL) (NORMAL) E.U./dL Ur Leukocyte Esterase SMALL H (NEGATIVE) Urine RBC TNTC H (0-5) /HPF Urine WBC >25 H (0-5) /HPF Ur Squamous Epith Cells NONE SEEN (<= Few) Urine Bacteria Many H (None Seen) /HPF Ur Microscopic Review INDICATED Urine Culture Comments INDICATED Blood Type O POSITIVE Blood Type Recheck Antibody Screen NEGATIVE 12/18/18 Range/Units 04:45 WBC (4.8-10.8) x10^3/uL RBC (4.20-5.40) 10^6/uL Hgb (12.0-16.0) g/dL Hct (37.0-47.0) % MCV (81.0-99.0) fL MCH (27.0-31.0) pg MCHC (32.0-36.0) g/dL RDW (12.0-15.0) % Plt Count (130-450) 10^3/uL MPV (7.9-10.8) fL Neut # (Auto) (1.5-6.6) 10^3/uL Lymph # (Auto) (1.5-3.5) 10^3/uL [place] # (Auto) (0.0-1.0) 10^3/uL Eos # (Auto) (0.0-0.7) 10^3/uL Baso # (Auto) (0.0-0.1) 10^3/uL Absolute Nucleated RBC x10^3/uL Nucleated RBC % /100WBC Urine Color Urine Clarity (CLEAR) Urine pH (5.0-7.5) PH Ur Specific [place] (1.002-1.030) Urine Protein (NEGATIVE) mg/dL Urine Glucose (UA) (NEGATIVE) mg/dL Urine Ketones (NEGATIVE) mg/dL Urine Occult Blood (NEGATIVE) Urine Nitrite (NEGATIVE) Urine Bilirubin (NEGATIVE) Urine Urobilinogen (NORMAL) E.U./dL Ur Leukocyte Esterase (NEGATIVE) Urine RBC (0-5) /HPF Urine WBC (0-5) /HPF Ur Squamous Epith Cells (<= Few) Urine Bacteria (None Seen) /HPF Ur Microscopic Review Urine Culture Comments Blood Type Blood Type Recheck O POSITIVE Antibody Screen ABX Reporting Has patient been on IV antibiotics over the past 48 hours?: Yes Sepsis Event Note (H) - Evaluation Current Stage of Sepsis: Ruled out Assessment/Plan - Problem List (1) Hip fracture, left Impression: The patient is a resident of [place] and was reported as sustaining a mechanical fall while going to the bathroom. She reports that the floor was wet and she slipped. 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 She is now post op day #[address] Gautam after a Closed reduction and long interTan nailing of left hip fracture. Blood loss was only 150 mL and on exam today she has no post-op bleeding or other known complications. She is eating well and is predicted to do well post op with therapies. An osteoporosis consult was made, for our tracking purposes and the patient has been started on Fosamax 10mg to be given daily x7 days, vitamin D3, and will go to a retirement facility to undergo physical therapy for her newly fractured left hip. Plan: Continue to follow for her general medical care, continue daily fosamax, vitamin D3, ASA, and encourage PT/OT, await placement to SNF for rehab in the next 2 days. 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 She sustained a mechanical fall while going to the bathroom and reported that she thinks the floor was wet, causing her to slip. She is baseline independent with ambulation and gets around using a walker at [place]. Plan: Continue fall precautions, and post op care. Qualifiers: Encounter type: initial encounter Qualified Code(s): W19.XXXA - Unspecified fall, initial encounter (3) Atrial fibrillation Impression: The patient had been prescribed metoprolol tartrate which is now scheduled as succinate and changed on her home med list for discharge. She has rapid a- fib/flutter and on exam today is still tachy with heart rates greater than 100 despite being in bed. She has been continued on her usual dose of 75mg BID. Plan: Continue metorpolol succinate BID, D/C telemetry, monitor vital signs, monitor for dehydration, and adjust as needed. Qualifiers: Atrial fibrillation type: chronic Qualified Code(s): I48.2 - Chronic atrial fibrillation (4) Hypertension Impression: The patient is only prescribed metoprolol at home and since surgery has had blood pressures of 124/58, but remains tachycardic. Plan: Continue metoprolol, monitor blood pressure and heart rates. Qualifiers: Hypertension type: essential hypertension Qualified Code(s): I10 - Ess ential (primary) hypertension (5) Anxiety Impression: The patient has had anxiety, likely due to her new environment and with moving her LLE since surgery. This is not thought to influence her recovery. Plan: Monitor mood, and behavior. (6) Osteoarthritis Impression: The patient has a history of this, but is not prescribed anything at home. Plan: Continue to monitor, treat acute post op pain, especially prior to therapies. (7) Urinary incontinence Impression: The patient states that since her stroke, she has had more trouble with incontinence. This puts her at risk for more frequent UTIs, which she has right now and is being treated with TMP/sulfa. Plan: Continue garcia for today, consider removal tomorrow after therapies are underway.
[2018-12-19] MEDS: METOPROLOL SUCCINATE 50 MG TABLET PO SCH ×2 (09:27→16:50)
[2018-12-19] MEDS: POLYETHYLENE GLYCOL 3350 17 GM PACKET PO SCH (09:30)
[2018-12-19] MEDS: ENOXAPARIN 40 MG/0.4 ML SYRINGE SUBQ SCH (09:30)
--- NOTE | 2018-12-19 09:39 | PROVIDER PROGRESS NOTE ---
Subjective - Prog Note Date Prog Note Date: 12/19/18 Prog Note Time: 09:37 - Subjective Pt reports feeling: Improved (Less pain. Comfortable in bed) Objective - Vital Signs/Intake & Output Vital Signs: Vital Signs x48h Temp Pulse Pulse Resp BP Pulse Ox 12/19/18 09:20 36.2 C L 89 16 98 12/19/18 07:30 36.3 C L 87 20 136/83 H 93 12/19/18 04:07 36.2 C L 89 16 134/88 H 98 Intake & Output: Intake & Output 12/16/18 12/17/18 12/18/18 12/19/18 23:59 23:59 23:59 23:59 Intake Total 755 2293.333 Output Total 230 125 Balance 525 2168.333 - Lab Results Fish Bones: 12/19/18 04:55 12/18/18 04:34 Other Labs: Lab Results x24hrs 12/19/18 12/18/18 12/18/18 Range/Units 04:55 16:25 13:39 WBC 12.1 H (4.8-10.8) x10^3/uL RBC 3.98 L (4.20-5.40) 10^6/uL Hgb 12.0 (12.0-16.0) g/dL Hct 36.6 L (37.0-47.0) % MCV 91.9 (81.0-99.0) fL MCH 30.1 (27.0-31.0) pg MCHC 32.8 (32.0-36.0) g/dL RDW 13.9 (12.0-15.0) % Plt Count 138 (130-450) 10^3/uL MPV 8.8 (7.9-10.8) fL Neut # (Auto) 10.4 H (1.5-6.6) 10^3/uL Lymph # (Auto) 0.8 L (1.5-3.5) 10^3/uL [place] # (Auto) 0.9 (0.0-1.0) 10^3/uL Eos # (Auto) 0.0 (0.0-0.7) 10^3/uL Baso # (Auto) 0.0 (0.0-0.1) 10^3/uL Absolute Nucleated RBC 0.00 x10^3/uL Nucleated RBC % 0.0 /100WBC Urine Color YELLOW Urine Clarity HAZY (CLEAR) Urine pH 6.0 (5.0-7.5) PH Ur Specific [place] 1.025 (1.002-1.030) Urine Protein NEGATIVE (NEGATIVE) mg/dL Urine Glucose (UA) NEGATIVE (NEGATIVE) mg/dL Urine Ketones NEGATIVE (NEGATIVE) mg/dL Urine Occult Blood MODERATE H (NEGATIVE) Urine Nitrite POSITIVE H (NEGATIVE) Urine Bilirubin NEGATIVE (NEGATIVE) Urine Urobilinogen 0.2 (NORMAL) (NORMAL) E.U./dL Ur Leukocyte Esterase SMALL H (NEGATIVE) Urine RBC TNTC H (0-5) /HPF Urine WBC >25 H (0-5) /HPF Ur Squamous Epith Cells NONE SEEN (<= Few) Urine Bacteria Many H (None Seen) /HPF Ur Microscopic Review INDICATED Urine Culture Comments INDICATED Blood Type O POSITIVE Blood Type Recheck Antibody Screen NEGATIVE 12/18/18 Range/Units 04:45 WBC (4.8-10.8) x10^3/uL RBC (4.20-5.40) 10^6/uL Hgb (12.0-16.0) g/dL Hct (37.0-47.0) % MCV (81.0-99.0) fL MCH (27.0-31.0) pg MCHC (32.0-36.0) g/dL RDW (12.0-15.0) % Plt Count (130-450) 10^3/uL MPV (7.9-10.8) fL Neut # (Auto) (1.5-6.6) 10^3/uL Lymph # (Auto) (1.5-3.5) 10^3/uL [place] # (Auto) (0.0-1.0) 10^3/uL Eos # (Auto) (0.0-0.7) 10^3/uL Baso # (Auto) (0.0-0.1) 10^3/uL Absolute Nucleated RBC x10^3/uL Nucleated RBC % /100WBC Urine Color Urine Clarity (CLEAR) Urine pH (5.0-7.5) PH Ur Specific [place] (1.002-1.030) Urine Protein (NEGATIVE) mg/dL Urine Glucose (UA) (NEGATIVE) mg/dL Urine Ketones (NEGATIVE) mg/dL Urine Occult Blood (NEGATIVE) Urine Nitrite (NEGATIVE) Urine Bilirubin (NEGATIVE) Urine Urobilinogen (NORMAL) E.U./dL Ur Leukocyte Esterase (NEGATIVE) Urine RBC (0-5) /HPF Urine WBC (0-5) /HPF Ur Squamous Epith Cells (<= Few) Urine Bacteria (None Seen) /HPF Ur Microscopic Review Urine Culture Comments Blood Type Blood Type Recheck O POSITIVE Antibody Screen - Other Results/Comments Other Results/Comments: EXAM: Dressing intact. Still some pain with hip motion. Moves toes well. Sensation ok. [place], warm toes. Sepsis Event Note (H) - Evaluation Current Stage of Sepsis: Ruled out Assessment/Plan - Problem List (1) Hip fracture, left Impression: Satis post op PLAN: Mobilize as tolerated. Qualifiers: Encounter type: initial encounter Fracture type: closed Qualified Code(s): S72.002A - Fracture of unspecified part of neck of left femur, initial encounter for closed fracture
[2018-12-19] MEDS: ACETAMINOPHEN 1,000 MG/100 ML 100 ML IV PRN ×2 (10:34→16:47)
[2018-12-19] MEDS: SULFAMETH/TRIMETH DS 800/160 MG TABLET PO SCH ×2 (13:27→21:00)
[2018-12-19] MEDS ORDERED: ALENDRONATE 10 MG PO SCH (14:39)
[2018-12-20] MEDS: SODIUM CHLORIDE FLUSH 0.9% 10 ML SYRINGE IVP SCH ×3 (01:21→16:10)
[2018-12-20] MEDS: ACETAMINOPHEN 1,000 MG/100 ML 100 ML IV PRN (01:24)
[2018-12-20 06:03] LABS: BASOPHILS % (AUTO) 0.3 %; EOSINOPHILS % (AUTO) 0.4 %; HGB - HEMOGLOBIN 10.3 g/dL (12.0-16.0); LYMPHOCYTES # (AUTO) 1.8 10^3/uL (1.5-3.5); MEAN CORPUSCULAR HEMOGLOBIN 29.9 pg (27.0-31.0); MEAN CORPUSCULAR HGB CONC 32.6 g/dL (32.0-36.0); MEAN CORPUSCULAR VOLUME 91.8 fL (81.0-99.0); MEAN PLATELET VOLUME 9.1 fL (7.9-10.8); MONOCYTES % (AUTO) 8.7 %; NEUTROPHILS # (AUTO) 8.4 10^3/uL (1.5-6.6); NEUTROPHILS % (AUTO) 74.6 %; PLT - PLATELET COUNT 120 10^3/uL (130-450); RED BLOOD COUNT 3.44 10^6/uL (4.20-5.40); WHITE BLOOD COUNT 11.3 x10^3/uL (4.8-10.8)
[2018-12-20 06:19] LABS: ALBUMIN 2.7 g/dL (3.2-5.5); ALBUMIN/GLOBULIN RATIO 1.1 (1.0-2.2); ALKALINE PHOSPHATASE 51 IU/L (42-121); ALT ALANINE AMINOTRANSFERASE < 10 IU/L (10-60); AST ASPARTATE AMINOTRANSFERASE 14 IU/L (10-42); BILIRUBIN,TOTAL 0.4 mg/dL (0.2-1.0); BUN - BLOOD UREA NITROGEN 18 mg/dL (6-20); CALCIUM 8.1 mg/dL (8.5-10.3); CARBON DIOXIDE - CO2 26 mmol/L (21-32); CHLORIDE 100 mmol/L (101-111); CREATININE 0.6 mg/dL (0.4-1.0); GFR - MDRD 95 (>89); GLUCOSE 98 mg/dL (70-100); SODIUM 133 mmol/L (135-145); TOTAL PROTEIN 5.1 g/dL (6.7-8.2)
[2018-12-20 06:22] LABS: VBG PH 7.417 (7.31-7.41)
--- NOTE | 2018-12-20 07:28 | PROVIDER PROGRESS NOTE ---
Subjective - Prog Note Date Prog Note Date: 12/20/18 Prog Note Time: 09:00 (updated after deepti morris and Dr Gautam) - Subjective Pt reports feeling: Improved ("A stroke is what will do me in", The plexipulses kept her up, Pain reasonably controlled,) Current Medications - Current Medications Current Medications: Active Medications Acetaminophen (Tylenol) 650 - 975 mg PO Q4HR PRN PRN Reason: PAIN Last Admin: 12/20/18 16:03 Dose: 650 mg Alendronate Sodium (Fosamax) 70 mg PO Q7D [facility] Cholecalciferol (Vitamin D3) 2,000 unit PO DAILY [facility] Last Admin: 12/20/18 08:31 Dose: 2,000 unit Docusate Sodium (Colace 100mg Capsule) 100 mg PO BID PRN PRN Reason: Constipation Enoxaparin Sodium (Lovenox) 40 mg SUBQ DAILY [facility] Last Admin: 12/20/18 08:32 Dose: 40 mg Acetaminophen (Ofirmev) 100 mls @ 400 mls/hr IV Q6HR PRN PRN Reason: PAIN Last Infusion: 12/20/18 01:39 Dose: Infused Sodium Chloride (Normal Saline 0.9%) 1,000 mls @ 80 mls/hr IV .[id number] [facility] Last Admin: 12/20/18 10:31 Dose: 80 mls/hr Metoprolol Succinate (Toprol Xl) 75 mg PO BIDWM [facility] Last Admin: 12/20/18 16:05 Dose: 75 mg Morphine Sulfate (Morphine (Carpuject)) 2 mg IVP Q2HR PRN PRN Reason: PAIN Last Admin: 12/19/18 04:46 Dose: 2 mg Ondansetron HCl (Zofran Inj) 4 mg IVP Q6HR PRN PRN Reason: Nausea / Vomiting Oxycodone HCl (Roxicodone) 5 mg PO Q4HR PRN PRN Reason: PAIN Polyethylene Glycol (Miralax) 17 gm PO DAILY [facility] Last Admin: 12/20/18 08:31 Dose: 17 gm Prochlorperazine Edisylate (Compazine Inj) 10 mg IVP Q6HR PRN PRN Reason: Nausea / Vomiting Senna (Senokot) 17.2 mg PO Q12H PRN PRN Reason: Constipation Sodium Chloride (Normal Saline Flush 0.9%) 10 ml IVP 0100,0900,1700 [facility] Last Admin: 12/20/18 16:10 Dose: Not Given Sodium Chloride (Normal Saline Flush 0.9%) 10 ml IVP PRN PRN PRN Reason: NEEDED PER PROVIDER ORDERS Trimethoprim/Sulfamethoxazole (Bactrim Ds 800/160) 1 tab PO BID [facility] Last Admin: 12/20/18 08:32 Dose: 1 tab Aspirin [Aspirin EC] 81 mg PO DAILY 12/18/18 Objective - Vital Signs/Intake & Output Reviewed Vital Signs: Yes Vital Signs: Vital Signs x48h Temp Pulse Resp BP Pulse Ox 12/20/18 01:20 36.9 C 94 16 144/80 H 96 Intake & Output: Intake & Output 12/17/18 12/18/18 12/19/18 12/20/18 23:59 23:59 23:59 23:59 Intake Total 755 4313.333 100 Output Total 230 1500 550 Balance 525 2813.333 -450 - Objective General Appearance: positive: No acute distress, Other (Sitting up in chair already early in shift eating breakfast with good appetite) Eyes Bilateral: positive: Other (field deficit) Respiratory: positive: No respiratory distress, Breath sounds nml. negative: Rales Cardiovascular: positive: No murmur, Irregularly irregular (rate ~ 80 , no matthieu reciable murmur, Heart sounds evident also on Right posterior chest auscultation) Abdomen: positive: Nml bowel sounds, No distention. negative: Tenderness Skin: positive: Warm, Dry Extremities: positive: No pedal edema Neurologic/Psychiatric: positive: Oriented x3 - Lab Results Fish Bones: 12/20/18 05:40 12/20/18 05:40 Other Labs: Lab Results x24hrs 12/20/18 12/20/18 12/20/18 Range/Units 05:40 05:40 05:40 WBC 11.3 H (4.8-10.8) x10^3/uL RBC 3.44 L (4.20-5.40) 10^6/uL Hgb 10.3 L (12.0-16.0) g/dL Hct 31.6 L (37.0-47.0) % MCV 91.8 (81.0-99.0) fL MCH 29.9 (27.0-31.0) pg MCHC 32.6 (32.0-36.0) g/dL RDW 14.0 (12.0-15.0) % Plt Count 120 L (130-450) 10^3/uL MPV 9.1 (7.9-10.8) fL Neut # (Auto) 8.4 H (1.5-6.6) 10^3/uL Lymph # (Auto) 1.8 (1.5-3.5) 10^3/uL [place] # (Auto) 1.0 (0.0-1.0) 10^3/uL Eos # (Auto) 0.0 (0.0-0.7) 10^3/uL Baso # (Auto) 0.0 (0.0-0.1) 10^3/uL Absolute Nucleated RBC 0.00 x10^3/uL Nucleated RBC % 0.0 /100WBC VBG pH 7.417 H (7.31-7.41) Ionized Calcium 1.11 L YES (1.15-1.33) mmol/L Sodium 133 L (135-145) mmol/L Potassium 3.9 (3.5-5.0) mmol/L Chloride 100 L (101-111) mmol/L Carbon Dioxide 26 (21-32) mmol/L Anion Gap 7.0 (6-13) BUN 18 (6-20) mg/dL Creatinine 0.6 (0.4-1.0) mg/dL Estimated GFR (MDRD) 95 (>89) Glucose 98 (70-100) mg/dL Calcium 8.1 L (8.5-10.3) mg/dL Total Bilirubin 0.4 (0.2-1.0) mg/dL AST 14 (10-42) IU/L ALT < 10 L (10-60) IU/L Alkaline Phosphatase 51 (42-121) IU/L Total Protein 5.1 L (6.7-8.2) g/dL Albumin 2.7 L (3.2-5.5) g/dL Globulin 2.4 (2.1-4.2) g/dL Albumin/Globulin Ratio 1.1 (1.0-2.2) Sepsis Event Note (H) - Evaluation Current Stage of Sepsis: Ruled out Assessment/Plan - Problem List (1) Hip fracture, left Impression: 1) Hip fracture, left Impression: s/p mechanical fall slipped on wet bathroom floor and visually impaired /blind stroke residual(resident of [place]) Day 2 post IM nailing (Dr Gautam) EBL 150 mL Doing very well, already worked w/ PT Day 1 on 12/19, To [facility] tomorrow (plan out by 10 AM) Continues Fosamax, Vit D3 as below ( osteoporosis consult was made, for our tracking purposes and the patient has been started on Fosamax 10mg to be given daily x7 days, vitamin D3, and will go to a snf facility to undergo physical therapy for her newly fractured left hip. Plan: Continue to follow for her general medical care, - continue daily fosamax, vitamin D3, ASA, and encourage PT/OT, await placement to SNF for rehab in the next 2 days. Qualifiers: Encounter type: initial encounter Fracture type: closed Qualified Code(s): S72.002A - Fracture of unspecified part of neck of left femur, initial encounter for closed fracture (2) Mechanical Fall Impression: As above/ slip on wet floor and some visual impairment s/p cardioembolic stroke No prior falls. Previously independent with ambulation with walker at [place]. goal return to [place] after SNF/ PT/OT for balance, improved mobility Encounter type: initial encounter Qualified Code(s): W19.XXXA - Unspecified fall, initial encounter (3) Atrial fibrillation Impression: Rate controlled on metoprolol succinate ( ~ 80's last 24 hrs) (is on 75 BID/ could consider change to 150 daily since is metoprolol succinate but will defer to PCP)e and changed on her home med list for discharge. off tele as of 12/19 continue metoprolol 12/19 She has rapid a-fib/flutter and on exam today is still tachy with heart ra yarelis greater than 100 despite being in bed. She has been continued on her usual dose of 75mg BID. Plan: Continue metorpolol succinate BID, D/C telemetry, monitor vital signs, monitor for dehydration, and adjust as needed. Qualifiers: Atrial fibrillation type: chronic Qualified Code(s): I48.2 - Chronic atrial fibrillation (4) Urinary Tract Infection/cystitis Impression: Pansensitive Ecoli Day 2 Bactrim [place] d/c'd 12/19 Today, patient denies any prior dysuria, frequency, hesitancy, (but evidently reproted some increased incontinence at home) (this May represent asymptomatic bacturia, has had frequent "UTI's" but she deneies symptoms ) Treat 3 days total as per recs 5) Hypertension Impression: BP reasonably controlled /SBP 116-140 on home metoprolol 12/19 The patient is only prescribed metoprolol at home and since surgery has had blood pressures of 124/58, but remains tachycardic. Plan: Continue metoprolol, monitor blood pressure and heart rates. Qualifiers: Hypertension type: essential hypertension Qualified Code(s): I10 - Essential (primary) hypertension (6) Anxiety Impression: Mood/ affect reasonable Aware of plans for [facility] concerned re 1 of her shoes is still at [place], will check if possible to get )forSNF) (7) Osteoarthritis Impression: Hx of, but not previously on Rx Fosamax, Vit D started here Qualifiers: Encounter type: initial encounter Fracture type: closed Qualified Code(s): S72.002A - Fracture of unspecified part of neck of left femur, initial encounter for closed fracture
[2018-12-20] MEDS: CHOLECALCIFEROL 1,000 UNIT TABLET PO SCH (08:31)
[2018-12-20] MEDS: POLYETHYLENE GLYCOL 3350 17 GM PACKET PO SCH (08:31)
[2018-12-20] MEDS: SULFAMETH/TRIMETH DS 800/160 MG TABLET PO SCH ×2 (08:32→20:31)
[2018-12-20] MEDS: ENOXAPARIN 40 MG/0.4 ML SYRINGE SUBQ SCH (08:32)
[2018-12-20] MEDS: METOPROLOL SUCCINATE 50 MG TABLET PO SCH ×2 (08:32→16:05)
--- NOTE | 2018-12-20 10:17 | PROVIDER PROGRESS NOTE ---
Subjective - Prog Note Date Prog Note Date: 12/20/18 Prog Note Time: 10:15 - Subjective Pt reports feeling: Improved (Less pain. Up in chair) Objective - Vital Signs/Intake & Output Vital Signs: Vital Signs x48h Temp Pulse Resp BP Pulse Ox 12/20/18 08:00 36.6 C 80 16 140/89 H 93 Intake & Output: Intake & Output 12/17/18 12/18/18 12/19/18 12/20/18 23:59 23:59 23:59 23:59 Intake Total 755 4313.333 460 Output Total 230 1500 550 Balance 525 2813.333 -90 - Lab Results Fish Bones: 12/20/18 05:40 12/20/18 05:40 Other Labs: Lab Results x24hrs 12/20/18 12/20/18 12/20/18 Range/Units 05:40 05:40 05:40 WBC 11.3 H (4.8-10.8) x10^3/uL RBC 3.44 L (4.20-5.40) 10^6/uL Hgb 10.3 L (12.0-16.0) g/dL Hct 31.6 L (37.0-47.0) % MCV 91.8 (81.0-99.0) fL MCH 29.9 (27.0-31.0) pg MCHC 32.6 (32.0-36.0) g/dL RDW 14.0 (12.0-15.0) % Plt Count 120 L (130-450) 10^3/uL MPV 9.1 (7.9-10.8) fL Neut # (Auto) 8.4 H (1.5-6.6) 10^3/uL Lymph # (Auto) 1.8 (1.5-3.5) 10^3/uL [place] # (Auto) 1.0 (0.0-1.0) 10^3/uL Eos # (Auto) 0.0 (0.0-0.7) 10^3/uL Baso # (Auto) 0.0 (0.0-0.1) 10^3/uL Absolute Nucleated RBC 0.00 x10^3/uL Nucleated RBC % 0.0 /100WBC VBG pH 7.417 H (7.31-7.41) Ionized Calcium 1.11 L YES (1.15-1.33) mmol/L Sodium 133 L (135-145) mmol/L Potassium 3.9 (3.5-5.0) mmol/L Chloride 100 L (101-111) mmol/L Carbon Dioxide 26 (21-32) mmol/L Anion Gap 7.0 (6-13) BUN 18 (6-20) mg/dL Creatinine 0.6 (0.4-1.0) mg/dL Estimated GFR (MDRD) 95 (>89) Glucose 98 (70-100) mg/dL Calcium 8.1 L (8.5-10.3) mg/dL Total Bilirubin 0.4 (0.2-1.0) mg/dL AST 14 (10-42) IU/L ALT < 10 L (10-60) IU/L Alkaline Phosphatase 51 (42-121) IU/L Total Protein 5.1 L (6.7-8.2) g/dL Albumin 2.7 L (3.2-5.5) g/dL Globulin 2.4 (2.1-4.2) g/dL Albumin/Globulin Ratio 1.1 (1.0-2.2) - Other Results/Comments Other Results/Comments: EXAM: Up in chair without problem. Moves toe well. Sensation intact. Mild pain with hip motion Sepsis Event Note (H) - Evaluation Current Stage of Sepsis: Ruled out Assessment/Plan - Problem List (1) Hip fracture, left Impression: satis post op PLAN: Mobilize as tolerated. To SNF soon. Follow up in orthopedic clinic in 2 weeks for shelby out and XR. Aj greenberg PT for walker ambulation - WBAT on left. Qualifiers: Encounter type: initial encounter Fracture type: closed Qualified Code(s): S72.002A - Fracture of unspecified part of neck of left femur, initial encounter for closed fracture
[2018-12-20] MEDS: ACETAMINOPHEN 325 MG TABLET PO PRN ×2 (10:28→16:03)
[2018-12-20] MEDS: SODIUM CHLORIDE 0.9% 1,000 ML IV SCH (10:31)
[2018-12-21] MEDS: ACETAMINOPHEN 325 MG TABLET PO PRN ×2 (01:04→09:44)
[2018-12-21] MEDS: SODIUM CHLORIDE FLUSH 0.9% 10 ML SYRINGE IVP SCH ×2 (01:06→08:18)
[2018-12-21] MEDS ORDERED: LACTULOSE 10 GM /15 ML UDC PO ONE (04:22)
[2018-12-21] MEDS ORDERED: ALENDRONATE 70 MG TABLET PO SCH (06:30)
--- NOTE | 2018-12-21 07:42 | Discharge Plan ---
Discharge Plan for SNF / [facility] - Discharge Plan And Transition Orders Disposition: 03 SNF DC/Xfer Condition: Stable Allergies and Adverse Reactions: Allergies Allergy/AdvReac Type Severity Reaction Status Date / Time erythromycin base Allergy Unknown Verified 12/18/18 04:55 - SNF / [facility] Transition Orders Admit to (Facility): [facility] Facility Discharge Diagnosis: 1. Left intertrochanteric hip fracture 1.5 Day 3 s/p closed reduction and Left Long interTan nailing of Left hip fractue 2. Mechanical fall 3. Legally blind 4. Atrial fibrillation 5) hypertension 6) history of cardioembolic CVA, TIA 7 Cystitis, ecoli, Day 3 Bactrim on discharge Medicare Certification Statement: I certify that [facility] long-term care is medically necessary on a continuing basis for any of the conditions for which she/he is receiving care during hospitalization. Notify PCP of admission and forward orders to primary provider for signature. Weight on admission and: Weekly (weight 57.5 kg (5'3" )) Other Notification Orders: Call PCP immediately if patient develops dyspnea, chest pain/tightness or edema. House Bowel Program: Yes Additional Bowel Program Orders: If no BM after 2 days, nurse may give M.O.M. 30ml PO PRN and/or ducolax Supp 1 MA and/or EVETTE 250mg P.O., and/or senna 1-2 tabs PO. On day 3 nurse may give repeat above order until residents constipation is resolved. Annual Influenza Vaccine (between Jul 02 and January 29): Yes Two-step PPD per [facility] [id number] or approved exception documents: Yes Treatments & Other Orders: Physical Therapy, Occupational Therapy. Goal return to [place]. Weight bearing as tolerated. Walker for ambulation Oxygen Orders: none needed Orthopedic Orders: -WBAT left (operated side), walker, PT, OT as above. -follow up in orthopedic clinic 2 weeks for shelby out and Xray Medication Orders: PLEASE REFER TO THE DISCHARGE MEDICATION LIST. Insulin Orders?: No - Medications New Prescriptions: Cholecalciferol (Vitamin D3) [Vitamin D] 2,000 unit PO DAILY #30 capsule Metoprolol Succinate 75 mg PO BID #90 tab.er.24h - Diet Type: No added salt Texture: Regular Liquids: Thin May have monthly special meal: Yes - Therapies | Activity Therapy: Evaluation | Treat if indicated: PT, OT Rehabilitation Potential: Maximize functional status, Return to independent living ((Resident of [facility])) Activity: Wt Bearing as Tolerated (WBAT on left operate leg per Dr Gautam) Weight Bearing: WBAT left
--- NOTE | 2018-12-21 08:03 | DISCHARGE SUMMARY ---
"Discharge Summary Admit Date: 12/18/18 Discharge Date: 12/21/18 Discharging Provider: TIMUR Dubon Code Status: Do Not Attempt Resuscitation Condition at Discharge: Stable Discharge Disposition: SNF DC/Xfer Discharge Facility Name: [facility] - DIAGNOSES Admission Diagnoses: 1. Left intertrochanteric hip fracture s/p mechanical fall 2) Mechanical fall 3) Day 3 s/p closed reduction and Left long interTan nailing of left hip fracture 4) legally blind 5) atrial fibrillation 6) hypertension 7) history of cardioembolic cva/ tia 8) cystitis, ecoli, Day 3 Bactrim on discharge Discharge Diagnoses with Status of Each Condition: 1) hip fracture; day 3 s/p Intertan nailing EBL 150 cc unremarkable post op course Discharge to SNF , analgesia with tylenol alone with good pain relief per patient WBAT PT/OT 2 weeks 30 mg lovenox daily for VTE prophylaxis per Dr Gautam See below for other chronic problems - HPI History of Present Illness: 88 year old female resident of [place] had mechanical fall/ slipped on wet floor, suffered Left displaced intertrochanteric hip fracture 12/18. Dr Josue Gautam consulted , uneventful L Left long Intertan nailing on 12/18 (EBL 150 cc), progressing well post op with physical therapy and discharging to [facility] on 12/21. - CONSULTS | PROCEDURES Consultations: Dr Josue Gautam, orthopedic surgery Procedures: closed reduction, Left long interTan nailing left hip fracture - HOSPITAL COURSE Hospital Course: 1) Left IT hip fracture / see above started Fosamax per hospital osteoporosis consult/tracking, was already on vit D3 as outpatient and continued (2) Atrial fibrillation Impression: Rate controlled on metoprolol succinate ( ~ 80's last 24 hrs) home dose (is on 75 BID/ could consider change to 150 daily since is metoprolol succinate but will defer to PCP) 3) History of Cardioembolic stroke/ TIA was previously on Eliquis, per patien PCP stopped Eliquis and changed to baby ASA daily after a TIA on eliquis (? unclear ), Patient reports declining warfarin Consider reevaluation and discussion w/ patient.[id number] 6 (4) Urinary Tract Infection/cystitis Impression: Pansensitive Ecoli Day 3 Bactrim / will complete dose on pm of 2/20 5) Hypertension Impression: BP reasonably controlled /SBP 116-140 on home metoprolol - ALLERGIES Allergies/Adverse Reactions: Allergies Allergy/AdvReac Type Severity Reaction Status Date / Time erythromycin base Allergy Unknown Verified 12/18/18 04:55 - MEDICATIONS Home Medications: Ambulatory Orders Medication Instructions Recorded Confirmed Aspirin [Aspirin EC] 81 mg PO DAILY 12/18/18 12/18/18 Cholecalciferol (Vitamin D3) 2,000 unit PO DAILY #30 capsule 12/19/18 [Vitamin D] Metoprolol Succinate 75 mg PO BID #90 tab.er.24h 12/19/18 Acetaminophen [Tylenol] 650 - 975 mg PO Q4HR PRN tablet 12/21/18 Alendronate [Fosamax] 70 mg PO Q7D tablet 12/21/18 Enoxaparin [Lovenox] 30 mg SUBQ DAILY 14 Days syringe 12/21/18 Polyethylene Glycol 3350 [Miralax] 17 gm PO DAILY packet 12/21/18 Senna [Senokot] 17.2 mg PO Q12H PRN tablet 12/21/18 Sulfamethox/Trimeth 800/160 1 tab PO BID tablet 12/21/18 [Bactrim Ds] - PHYSICAL EXAM AT DISCHARGE General Appearance: positive: No acute distress, Other (up in chair eating) Eyes Bilateral: positive: Normal inspection, Other (decreased visual acuity at baseline, mild field deficit left) Respiratory: positive: No respiratory distress, Breath sounds nml (other than faint bibasilar early inspiratory crackles) Cardiovascular: positive: Irregularly irregular (rate controlled ~ 80) Abdomen: positive: Nml bowel sounds. negative: No distention (wearing adult pad) Skin: positive: Warm, Dry Extremities: negative: Pedal edema (left hip dressing dry, intact) Neurologic/Psychiatric: positive: Oriented x3, Mood/affect nml - LABS Result Diagrams: 12/20/18 05:40 12/20/18 05:40 - DIAGNOSTIC IMAGING Diagnostic Imaging Results Comments: Hip Pelvis plain 12/18 : Angulated IT fracture left hip, DJD bilateral hips Admission CXR; no acute finding, Cardiomegaly, stable c/w prior, calcified granuloma R mid lung - SEPSIS Current Stage of Sepsis: Ruled out - TIME SPENT Time Spent in Discharge (Minutes): 35"
[2018-12-21] MEDS: METOPROLOL SUCCINATE 50 MG TABLET PO SCH (08:15)
[2018-12-21] MEDS: SULFAMETH/TRIMETH DS 800/160 MG TABLET PO SCH (08:16)
[2018-12-21] MEDS: POLYETHYLENE GLYCOL 3350 17 GM PACKET PO SCH (08:17)
[2018-12-21] MEDS: ENOXAPARIN 40 MG/0.4 ML SYRINGE SUBQ SCH (08:17)
[2018-12-21] MEDS: CHOLECALCIFEROL 1,000 UNIT TABLET PO SCH (08:17)
[2018-12-21 09:26] VITALS: BP 114/70
== END 2018-12-21 10:15 | DRG 481 ==
LOC: EDUNIT# → ED 03:56 → MS2 05:59
PROVIDERS: ADMIT Internal Medicine; ATTEND Nurse Practitioner
PROC: 0QS736Z Reposition Left Upper Femur with Intramedullary Internal Fixation Device, Percutaneous Approach (ICD-10-PCS; principal; 2018-12-18 14:00)
DX: S72.142A Displaced intertrochanteric fracture of left femur, initial encounter for closed fracture (principal); I69.854 Hemiplegia and hemiparesis following other cerebrovascular disease affecting left non-dominant side; W01.0XXA Fall on same level from slipping, tripping and stumbling without subsequent striking against object, initial encounter; Y93.E8 Activity, other personal hygiene; Y92.091 Bathroom in other non-institutional residence as the place of occurrence of the external cause; I48.91 Unspecified atrial fibrillation; N30.90 Cystitis, unspecified without hematuria; B96.20 Unspecified Escherichia coli [E. coli] as the cause of diseases classified elsewhere; I48.2 Chronic atrial fibrillation; E86.0 Dehydration; M81.0 Age-related osteoporosis without current pathological fracture; R32 Unspecified urinary incontinence; I10 Essential (primary) hypertension; M16.0 Bilateral primary osteoarthritis of hip; H54.8 Legal blindness, as defined in USA; Z79.82 Long term (current) use of aspirin; Z96.659 Presence of unspecified artificial knee joint
CPT/HCPCS: 36415; 71045; 80053; 81001; 81003; 82330; 82550; 83690; 84484; 85025; 85610; 86850; 86900; 86901; 87086; 87181; 93005; 96374; 99283; 99284

== ENCOUNTER 2019-02-10 16:10 | Outpatient (CLI) | payer MEDICARE, BC ==
--- NOTE | 2019-02-10 17:04 | XRAY Report ---
Reason: UNSPECIFIED INJURY OF LEFT WRIST,HAND AND FINGERS, Procedure Date: 02/10/2019 Accession Number: [id number] / [id number] Procedure: XR - Wrist 4 View LT CPT Code: FULL RESULT: EXAM: LEFT WRIST RADIOGRAPHY EXAM DATE: 02/10/2019 04:17 PM. CLINICAL HISTORY: UNSPECIFIED INJURY OF LEFT WRIST,HAND AND FINGERS. COMPARISON: None. TECHNIQUE: 4 views. FINDINGS: Bones: There is a distal radius fracture. There is approximately 5 mm of displacement and 18 degrees of angulation. There is avulsion fracture of the distal tip of the ulnar styloid. Joints: No subluxation or dislocation. Soft Tissues: There is soft tissue swelling of the distal radius. IMPRESSION: Distal radius metaphysis fracture with 18 degrees of angulation. RADIA The call report notification system was initiated by Dr. Seth Thompson at 05:02 PM on 02/10/2019. ADDENDUM: 02/10/19 17:07 The above call report findings were discussed with Quincy Carpenter Dr by Dr. Seth Thompson at 05:07 PM on 02/10/2019.
== END 2019-02-10 16:11 | disposition home or self-care (01) ==
LOC: DI 16:10
PROVIDERS: ATTEND Registered Nurse
DX: S52.592A Other fractures of lower end of left radius, initial encounter for closed fracture (principal)

== ENCOUNTER 2019-04-11 17:04 | Outpatient (CLI) | payer MEDICARE, BC | END 2019-04-11 17:05 | disposition short-term general hospital (02) | LOC: EMS 17:04 | PROVIDERS: ATTEND Surgery | DX: R41.0 Disorientation, unspecified (principal); R47.9 Unspecified speech disturbances; R03.0 Elevated blood-pressure reading, without diagnosis of hypertension | CPT/HCPCS: A0425; A0429 ==